=== PATIENT | female | born 1990 | race African-American/Black ===

== ENCOUNTER 2017-03-11 17:30 | Emergency (ER) | payer OTHER ==
[~2017-03-11] VITALS: Ht 170.2 cm; Wt 87.0 kg
[2017-03-11] MEDS ORDERED: SODIUM CHLORIDE 0.9% 1,000 ML IV ONE (18:14)
[2017-03-11 18:57] LABS: BASOPHILS % 0.8 % (0.0-2.0); HEMATOCRIT. 38.7 % (36.0-48.0); HEMOGLOBIN. 12.8 g/dL (12.0-16.0); LYMPHOCYTES % 23.6 % (20.0-50.0); MEAN CORPUSCULAR HEMOGLOBIN 28.4 pg (28.0-32.0); MEAN CORPUSCULAR VOLUME 85.6 fL (81.0-99.0); MEAN PLATELET VOLUME 10.1 fl (7.4-10.4); MONOCYTES % 6.9 % (2.0-8.0); NEUTROPHILS % 65.7 % (40.0-76.0); PLATELET 214 x1000/uL (130-400); RED BLOOD CELL COUNT 4.52 mill/uL (4.2-5.4); RED CELL DISTRIBUTION WIDTH 15.5 % (11.6-14.6)
[2017-03-11 19:01] LABS: PROTHROMBIN TIME 10.5 sec (9.4-11.6)
[2017-03-11 19:06] LABS: CARBON DIOXIDE 27 mEq/L (21-32); CHLORIDE 104 mEq/L (98-107); TROPONIN I < 0.02 ng/mL (0.00-0.04)
[2017-03-11] MEDS ORDERED: ACETAMINOPHEN WITH CODEINE 300/30MG TABLET PO ONE (19:15)
[2017-03-11] MEDS ORDERED: IOHEXOL-350 100 ML BOTTLE ONE (19:58)
[2017-03-11 21:00] VITALS: BP 155/66
== END 2017-03-11 21:00 | disposition home or self-care (01) ==
LOC: ER 17:30
DX: R07.89 Other chest pain (principal)
CPT/HCPCS: 36415; 71010; 71275; 80053; 81025; 83880; 84484; 85025; 85610; 93005; 96360; 99285; J7030; Q9967; Z7610